=== PATIENT | male | born 1985 | race African-American/Black ===

== ENCOUNTER 2018-09-10 19:49 | Emergency (ER) | payer SELFPAY ==
[~2018-09-10] VITALS: Ht 182.9 cm; Wt 77.1 kg
[2018-09-10 20:05] VITALS: BP 123/87
[2018-09-10 22:04] VITALS: BP 122/85
[2018-09-13 06:16] LABS: CHLAMYDIA TRACHOMATIS AMP DNA Negative (Negative)
== END 2018-09-10 22:05 | disposition home or self-care (01) ==
LOC: MED 19:49
DX: B08.1 Molluscum contagiosum (principal)
CPT/HCPCS: 36415; 81002; 87491; 99282